=== PATIENT | female | born 1970 | race Two or more races ===

== ENCOUNTER 2016-09-02 17:30 | Emergency (ER) | payer OTHER ==
[~2016-09-02 17:30] MED LIST: ALBUTEROL SULF8.5 GM IH; ALPRAZOLAM0.5 MG PO; AMBIEN10 MG PO; AMOXICILLIN875 MG PO; ATARAX,VISTARIL50 MG PO; ATORVASTATIN CA10 MG PO; AUGMENTIN875 MG PO; BACTRIM,SEPT1 TABLET PO; CLEOCIN300 MG PO; ELIMITE 5% CREA60 GM TP; ENDOCET 5-3251 EACH PO; HALDOL2 MG PO; KEFLEX500 MG PO; LIDODERM 5% P1 PATCH TD; MACROBID100 MG PO; METFORMIN HCL500 MG PO; MOBIC7.5 MG PO; MOTRIN600 MG PO; MOTRIN800 MG PO; NAPROSYN500 MG PO; NOHOMEMEDS; NORCO 5/3251 TABLET PO; PEN-VEE K,VEET500 MG PO; PERCOCET 5/31 TABLET PO; PRAZOSIN HCL1 MG PO; PYRIDIUM200 MG PO; TOPAMAX50 MG PO; TOPIRAMATE50 MG PO; ULTRAM50 MG PO; VALIUM5 MG PO; VICODIN,LORT1 TABLET PO; ZITHROMAX Z-PA250 MG PO; ZOLPIDEM TARTRA10 MG PO
== END 2016-09-02 18:05 | disposition left against medical advice (07) ==
LOC: EME 17:30
DX: R10.2 Pelvic and perineal pain (principal); Z53.21 Procedure and treatment not carried out due to patient leaving prior to being seen by health care provider

== ENCOUNTER 2016-09-04 13:07 | Emergency (ER) | payer OTHER ==
[~2016-09-04] VITALS: Ht 170.2 cm; Wt 93.8 kg
[2016-09-04 13:55] LABS: HEMATOCRIT 42.2 % (36.0-46.0); MCHC 33.6 G/DL (30.0-36.0); MEAN PLAT.VOLUME 11.6 uM^3 (9.5-12.4); PLATELET COUNT 217 K/uL (156-360); RBC DIS.WIDTH-CV 13.3 % (11.8-14.6); RBC DIS.WIDTH-SD 42.7 % (39-53); RED BLOOD COUNT 4.74 M/uL (3.80-5.20); WHITE BLOOD COUNT 8.5 K/uL (4.1-10.2)
[2016-09-04 14:15] LABS: ANION GAP 10 MEQ/L (2-14); CHLORIDE 103 MEQ/L (99-109); POTASSIUM 3.9 MEQ/L (3.7-5.4); SAMPLE HEMOLYSIS CHECK 0; SAMPLE ICTERIC CHECK 0; SAMPLE LIPEMIA CHECK 0; SODIUM 137 MEQ/L (136-147); TOTAL BILIRUBIN 0.5 MG/DL (0.0-1.0)
[2016-09-04 14:21] LABS: ALKALINE PHOSPHATASE 44 IU/L (3-129); GFR ESTIMATE (CALCULATED) > 59 mL/min/; GLUCOSE 182 mg/dL (70-99); LIPASE 36 U/L (1.0-51.0); UREA NITROGEN (BUN) 14 mg/dL (9-23)
[2016-09-04 14:23] LABS: QUANTITATIVE HCG < 4.0 MIU/ML
[2016-09-04 14:31] LABS: ADD MIUA? YES; BILIRUBIN NEGATIVE; BLOOD SMALL; COLOR YELLOW ((YELLOW)); GLUCOSE (STRIP) NEGATIVE; KETONES TRACE; LEUKOCYTES LARGE; NITRITE POSITIVE; PROTEIN (STRIP) 100; SPECIFIC GRAVITY 1.028 (1.000-1.030); UROBILINOGEN 0.2 MG/DL (0.2-1.0)
[2016-09-04] MEDS ORDERED: TOPAMAX50 MG PO (14:42)
[2016-09-04] MEDS ORDERED: PRAZOSIN HCL1 MG PO (14:43)
[2016-09-04] MEDS ORDERED: KEFLEX500 MG PO (14:53)
[2016-09-04] MEDS ORDERED: DIFLUCAN150 MG PO (14:53)
[2016-09-04] MEDS ORDERED: PYRIDIUM200 MG PO (14:53)
[2016-09-04 15:22] LABS: BACTERIA 3+; CASTS NONE SEEN /LPF; CRYSTALS NONE SEEN; EPITHELIAL CELLS 1+; MUCUS 1+; OTHER RENAL CELLS; UCUL ADDED? YES; WHITE BLOOD CELLS TNTC /HPF (0-5)
[2016-09-04 15:23] VITALS: BP 146/74
== END 2016-09-04 15:25 | disposition home or self-care (01) ==
LOC: EME 13:07
DX: N30.01 Acute cystitis with hematuria (principal); F17.200 Nicotine dependence, unspecified, uncomplicated; Z88.6 Allergy status to analgesic agent; Z88.8 Allergy status to other drugs, medicaments and biological substances; Z87.440 Personal history of urinary (tract) infections
CPT/HCPCS: 80053; 81003; 83690; 84702; 85027; 87077; 87086; 87186; 99281; 99284; J0696

== ENCOUNTER 2016-09-16 18:39 | Emergency (ER) | payer OTHER ==
[~2016-09-16] VITALS: Ht 170.2 cm; Wt 94.8 kg
[~2016-09-16 18:39] MED LIST changes: +DIFLUCAN150 MG PO
[2016-09-16] MEDS ORDERED: LIDODERM 5% P1 PATCH TD (19:29)
[2016-09-16] MEDS ORDERED: VALIUM5 MG PO (19:29)
[2016-09-16] MEDS ORDERED: ULTRAM50 MG PO (19:29)
[2016-09-16 19:53] VITALS: BP 125/72
== END 2016-09-16 19:57 | disposition home or self-care (01) ==
LOC: EME 18:39
DX: S39.012A Strain of muscle, fascia and tendon of lower back, initial encounter (principal); X50.9XXA Other and unspecified overexertion or strenuous movements or postures, initial encounter; Z88.6 Allergy status to analgesic agent
CPT/HCPCS: 99281; 99283

== ENCOUNTER 2016-11-13 22:39 | Emergency (ER) | payer OTHER ==
[~2016-11-13] VITALS: Ht 170.2 cm; Wt 96.4 kg
[2016-11-13] MEDS ORDERED: TOPAMAX100 MG PO (23:10)
[2016-11-13] MEDS ORDERED: AMBIEN10 MG PO (23:11)
[2016-11-13] MEDS ORDERED: TRUVADA1 TABLET PO (23:13)
[2016-11-13] MEDS ORDERED: PERCOCET 5/31 TABLET PO (23:33)
[2016-11-13] MEDS ORDERED: SKELAXIN800 MG PO (23:33)
[2016-11-14 00:29] VITALS: BP 132/75
== END 2016-11-14 00:31 | disposition home or self-care (01) ==
LOC: EXP 22:39 → EME 22:39 → EXP 11-14 00:31
DX: S39.012A Strain of muscle, fascia and tendon of lower back, initial encounter (principal); Z21 Asymptomatic human immunodeficiency virus [HIV] infection status; Y93.E9 Activity, other interior property and clothing maintenance; Y92.009 Unspecified place in unspecified non-institutional (private) residence as the place of occurrence of the external cause; X50.9XXA Other and unspecified overexertion or strenuous movements or postures, initial encounter

== ENCOUNTER 2017-03-19 14:01 | Emergency (ER) | payer OTHER ==
[~2017-03-19] VITALS: Ht 170.2 cm; Wt 96.8 kg
[~2017-03-19 14:01] MED LIST changes: +SKELAXIN800 MG PO; +TOPAMAX100 MG PO; +TRUVADA1 TABLET PO
[2017-03-19] MEDS ORDERED: UNABLE TO OBTAIN (14:17)
[2017-03-19] MEDS ORDERED: PERCOCET 5/31 TABLET PO (16:13)
[2017-03-19 16:40] VITALS: BP 125/82
== END 2017-03-19 16:47 | disposition home or self-care (01) ==
LOC: EME 14:01
DX: S70.00XA Contusion of unspecified hip, initial encounter (principal); S40.011A Contusion of right shoulder, initial encounter; W10.9XXA Fall (on) (from) unspecified stairs and steps, initial encounter; E11.9 Type 2 diabetes mellitus without complications; F17.200 Nicotine dependence, unspecified, uncomplicated
CPT/HCPCS: 73030; 73060; 73502; 73552; 73564; 99281; 99284

== ENCOUNTER 2017-03-25 16:28 | Emergency (ER) | payer OTHER ==
[~2017-03-25] VITALS: Ht 170.2 cm; Wt 99.5 kg
[~2017-03-25 16:28] MED LIST changes: +UNABLE TO OBTAIN
[2017-03-25 16:46] VITALS: BP 169/104
[2017-03-25] MEDS ORDERED: VALIUM5 MG PO (20:41)
[2017-03-25] MEDS ORDERED: INDOCIN50 MG PO (20:41)
[2017-03-25] MEDS ORDERED: LIDODERM 5% P1 PATCH TD (20:41)
== END 2017-03-25 21:00 | disposition home or self-care (01) ==
LOC: EME 16:28
DX: S93.401A Sprain of unspecified ligament of right ankle, initial encounter (principal); S39.012A Strain of muscle, fascia and tendon of lower back, initial encounter; S83.91XA Sprain of unspecified site of right knee, initial encounter; S40.021A Contusion of right upper arm, initial encounter; W10.9XXA Fall (on) (from) unspecified stairs and steps, initial encounter; F41.9 Anxiety disorder, unspecified; F32.9 Major depressive disorder, single episode, unspecified; F17.200 Nicotine dependence, unspecified, uncomplicated
CPT/HCPCS: 72100; 73590; 99281; 99283; J1885; J3010

== ENCOUNTER 2017-04-17 20:11 | Emergency (ER) | payer OTHER ==
[~2017-04-17] VITALS: Ht 170.2 cm; Wt 98.7 kg
[~2017-04-17 20:11] MED LIST changes: +INDOCIN50 MG PO
[2017-04-17 21:01] LABS: ADD MIUA? YES; BILIRUBIN NEGATIVE; BLOOD SMALL; COLOR YELLOW ((YELLOW)); GLUCOSE (STRIP) NEGATIVE; KETONES NEGATIVE; LEUKOCYTES NEGATIVE; NITRITE NEGATIVE; PROTEIN (STRIP) 30; UROBILINOGEN 0.2 MG/DL (0.2-1.0)
[2017-04-17 21:05] LABS: BACTERIA RARE /HPF; EPITHELIAL CELLS RARE /HPF; MUCUS TRACE /LPF; RED BLOOD CELLS 0-5 /HPF (0-5); UCUL ADDED? NO; WHITE BLOOD CELLS 0-5 /HPF (0-5)
[2017-04-17] MEDS ORDERED: GUAIFEN-CODEINE5 ML PO (21:08)
[2017-04-17 21:18] VITALS: BP 00/0
== END 2017-04-17 21:20 | disposition home or self-care (01) ==
LOC: EME 20:11
PROVIDERS: Physician Assistant Medical
DX: J06.9 Acute upper respiratory infection, unspecified (principal); F17.200 Nicotine dependence, unspecified, uncomplicated
CPT/HCPCS: 81003; 99281; 99283

== ENCOUNTER 2017-05-08 14:00 | Emergency (ER) | payer OTHER ==
[~2017-05-08] VITALS: Ht 170.2 cm; Wt 95.5 kg
[~2017-05-08 14:00] MED LIST changes: +GUAIFEN-CODEINE5 ML PO
[2017-05-08] MEDS ORDERED: MOTRIN600 MG PO (15:44)
[2017-05-08 16:28] VITALS: BP 162/95
== END 2017-05-08 16:32 | disposition home or self-care (01) ==
LOC: EME 14:00
DX: S39.012A Strain of muscle, fascia and tendon of lower back, initial encounter (principal); M54.32 Sciatica, left side; W10.9XXA Fall (on) (from) unspecified stairs and steps, initial encounter
CPT/HCPCS: 99281; 99283

== ENCOUNTER 2017-08-15 09:58 | Emergency (ER) | payer OTHER ==
[~2017-08-15] VITALS: Ht 170.2 cm; Wt 96.7 kg
[2017-08-15] MEDS ORDERED: TESSALON PERLE100 MG PO (10:38)
[2017-08-15] MEDS ORDERED: ZITHROMAX250 MG PO (11:15)
[2017-08-15 12:15] VITALS: BP 131/92
== END 2017-08-15 12:16 | disposition home or self-care (01) ==
LOC: EME 09:58
DX: J40 Bronchitis, not specified as acute or chronic (principal); H74.8X2 Other specified disorders of left middle ear and mastoid; J02.9 Acute pharyngitis, unspecified; F17.200 Nicotine dependence, unspecified, uncomplicated
CPT/HCPCS: 71020; 99281; 99283